=== PATIENT | female | born 1995 | race Caucasian/White ===

== ENCOUNTER 2016-08-28 19:12 | Emergency (ER) | payer BC ==
[~2016-08-28] VITALS: Ht 152.4 cm; Wt 92.1 kg
[2016-08-28 20:31] LABS: HEMOGLOBIN 14.3 g/dL (11.7-16.4)
[2016-08-28 20:42] LABS: ASPARTATE AMINO TRANSFERASE 23 U/L (15-37); BLOOD UREA NITROGEN 11 mg/dL (7-18)
[2016-08-28] MEDS ORDERED: METHOCARBAMOL 750 MG TABLET PO ONE (22:00)
[2016-08-28] MEDS ORDERED: PLEASE ENTER ALLERGIES MC SCH ×2 (22:00)
[2016-08-28] MEDS ORDERED: KETOROLAC 30 MG/1 ML IM ONE (22:00)
[2016-08-28] MEDS ORDERED: KETOROLAC 30 MG/1 ML ONE (22:11)
[2016-08-28] MEDS ORDERED: METHOCARBAMOL 750 MG TABLET ONE (22:11)
[2016-08-28 23:22] VITALS: BP 118/76
== END 2016-08-28 23:26 | disposition home or self-care (01) ==
LOC: ED 23:06
DX: S39.012A Strain of muscle, fascia and tendon of lower back, initial encounter (principal); X58.XXXA Exposure to other specified factors, initial encounter; Y93.89 Activity, other specified; Y92.89 Other specified places as the place of occurrence of the external cause; Y99.9 Unspecified external cause status
CPT/HCPCS: 36415; 80053; 81003; 83690; 84703; 85025; 96372; 99284; J1885